=== PATIENT | female | born 1945 | race Caucasian/White ===

== ENCOUNTER → 2022-11-15 | Outpatient (CLI) | payer MEDICARE, OTHER, SELFPAY ==
--- NOTE | 2022-11-15 07:45 | MRI_ITS ---
EXAM: MR LEFT LOWER EXTREMITY WITHOUT INTRAVENOUS CONTRAST, FOOT CLINICAL INDICATION: charcot arthropathy TECHNIQUE: Multiplanar and multisequence MR images of the left foot without intravenous contrast. COMPARISON: No relevant prior studies available. FINDINGS: LIGAMENTS: MEDIAL COLLATERAL: Unremarkable. Intact. LATERAL COLLATERAL: Unremarkable. Intact. LISFRANC: Unremarkable. Intact. TENDONS: FLEXOR: Unremarkable. Intact. EXTENSOR: Unremarkable. Intact. PERONEAL: Unremarkable. Intact. TIBIALIS ANTERIOR: Unremarkable. Intact. TIBIALIS POSTERIOR: Unremarkable. Intact. MUSCLES: Severe foot muscle atrophy throughout. FLUID: Unremarkable. No joint effusion. PLANTAR FASCIA: Unremarkable. Intact. BONES/JOINTS: Possible cellulitis as there is some fluid signal surrounding the first metatarsal. 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 Marrow edema involving the majority of the first metatarsal and medial cuneiform. No fracture line seen. No osteonecrosis. Normal forefoot alignment. OTHER SOFT TISSUES: Diffuse dorsal subcutaneous edema. No organized fluid collections. MRI/Lower Ext/No Jt/w/o IMPRESSION: 1. Marrow edema involving the majority of the first metatarsal and the adjacent medial cuneiform. This is probably reactive and less likely secondary to osteomyelitis. 2. Possible cellulitis as there is some fluid signal surrounding the first metatarsal which demonstrates thickening of the anterior wall. Correlation with radiography which is not available at the time of this dictation. Electronically Signed: Rommel Hedrick MD at 4:21 EDT ,
--- NOTE | 2022-11-15 07:45 | MRI_ITS ---
EXAM: MR LEFT LOWER EXTREMITY WITHOUT INTRAVENOUS CONTRAST, ANKLE CLINICAL INDICATION: CHARCOT ARTHOPATHY TECHNIQUE: Multiplanar and multisequence MR images of the left ankle without intravenous contrast. COMPARISON: No relevant prior studies available. FINDINGS: LIGAMENTS: ANTERIOR TALOFIBULAR: Thickening of the anterior talofibular ligament is probably a previous injury. POSTERIOR TALOFIBULAR: Unremarkable. Intact. ANTERIOR TIBIOFIBULAR: Unremarkable. Intact. POSTERIOR TIBIOFIBULAR: Unremarkable. Intact. CALCANEOFIBULAR: Unremarkable. Intact. DELTOID: Unremarkable. Intact. SPRING: Unremarkable. Intact. LISFRANC: Unremarkable. Intact. TENDONS: ACHILLES: Unremarkable. Intact. FLEXOR: Unremarkable. Intact. EXTENSOR: Unremarkable. Intact. PERONEAL: Unremarkable. Intact. TIBIALIS ANTERIOR: Unremarkable. Intact. TIBIALIS POSTERIOR: Unremarkable. Intact. MUSCLES: Unremarkable. Normal bulk and signal. FLUID: Unremarkable. No significant tibiotalar or posterior subtalar joint effusion. SINUS TARSI: Unremarkable. Normal fat in the sinus tarsi. TARSAL TUNNEL: Unremarkable. PLANTAR FASCIA: Unremarkable. Intact. CARTILAGE: Unremarkable. No osteochondral lesion. Articular cartilage intact. BONES/JOINTS: Osteoarthritic changes involving multiple tarsometatarsal articulations, particularly at the first comment incompletely imaged on this study. Talar dome intact. No fracture or marrow edema. OTHER SOFT TISSUES: Soft tissue edema along the posterior aspect of the ankle with no organized fluid collections. MRI/Lower Ext Joint Only (Routine) IMPRESSION: 1. Osteoarthritic changes involving multiple tarsometatarsal articulations, particularly at the first comment incompletely imaged on this study. 2. Thickening of the anterior talofibular ligament is probably a previous injury. 3. No other significant internal derangement. Electronically Signed: Rommel Hedrick MD at 4:00 EDT ,
== END | disposition home or self-care (01) ==
LOC: MRI 07:41
PROVIDERS: PCP Family Medicine; Referring Provider Podiatrist; Visit Provider Podiatrist
DX: A52.16 Charcot's arthropathy (tabetic) (principal)
CPT/HCPCS: 73718; 73721